=== PATIENT | female | born 1975 | race Caucasian/White ===

== ENCOUNTER 2018-07-26 01:08 | Inpatient (IN) | payer SELFPAY ==
[2018-07-26] VITALS (7 sets, daily range): BP systolic 109–131; BP diastolic 59–76
[~2018-07-26] VITALS: Ht 160 cm; Wt 70.9 kg
[2018-07-26] MEDS ORDERED: ENOXAPARIN SOD INJ 60 MG/0.6 ML SYR SC STA (01:09)
--- OUTSIDE RECORDS SUMMARY | 2018-07-26 01:11 | XMS REPORT ---
Author Author [facility] Address Unknown Phone Unavailable Care Team Providers Care Fur Sorter Name Role Phone Unavailable Unavailable Payers Payer Name Policy Type Policy Number Effective Date Expiration Date Problems This patient has no known problems. Allergies, Adverse Reactions, Alerts Allergy Name Allergy Type Status Severity Reaction(s) Onset Date Inactive Date Treating Clinician Comments No Known Allergies DA Active U 2016-10-09 00:00:00 Medications This patient has no known medications.
[2018-07-26] MEDS ORDERED: SODIUM CHLORIDE 0.9% 50ML 50 ML ONE (01:19)
[2018-07-26] MEDS ORDERED: IOPAMIDOL 370 MG/ML 200 ML INFUS..BTL INJ ONE (01:19)
[2018-07-26 01:34] LABS: BASOPHILS # (AUTO) 0.1 (0.0-0.1); BASOPHILS % 0.6 % (0.0-1.0); EOSINOPHILS # (AUTO) 0.2 (0.0-0.4); EOSINOPHILS % 1.6 % (0.0-6.0); HEMATOCRIT 38.3 % (34.2-44.1); HEMOGLOBIN 12.5 g/dL (12.0-16.0); LYMPHOCYTES # (AUTO) 2.4 (1.0-3.2); LYMPHOCYTES % 22.9 % (18.0-39.1); MEAN CORPUSCULAR HGB CONC 32.6 g/dL (31-35); MONOCYTES # (AUTO) 0.8 (0.2-0.8); MONOCYTES % 7.2 % (4.4-11.3); NEUTROPHILS % 67.3 % (38.7-80.0); PLATELET COUNT 304 x10e3/uL (140-360); RED BLOOD COUNT 4.03 x10e6/uL (3.6-5.1); RED CELL DISTRIBUTION WIDTH 13.9 % (11.7-14.4)
[2018-07-26 01:38] LABS: ABG HCO3 24 mmol/L (23-28); ABG PCO2 31 mmHg (41-51); ABG PH 7.38 (7.31-7.41); ABG PO2 76 mmHg (80-105)
[2018-07-26 01:50] LABS: ALANINE AMINOTRANSFERASE 17 IU/L (0-55); ALBUMIN 3.3 g/dL (3.5-5.0); ALKALINE PHOSPHATASE 104 IU/L (40-150); AMYLASE 61 U/L (25-125); ANION GAP 15.9 mmol/L (8-16); BLOOD UREA NITROGEN 7 mg/dL (7-26); BUN/CREATININE RATIO 9 (6-25); CARBON DIOXIDE 21 mmol/L (22-29); CHLORIDE 104 mmol/L (98-107); CREATININE, SERUM 0.74 mg/dL (0.57-1.11); EST GLOMERULAR FILTRATION RATE > 60 ML/MIN (60-); GLUCOSE 108 mg/dL (74-118); LIPASE 49 U/L (8-78); POTASSIUM 3.9 mmol/L (3.5-5.1); SODIUM 137 mmol/L (136-145)
--- NOTE | 2018-07-26 02:39 | Diagnostic Imaging Report ---
EXAM: CT Chest WITH contrast (PE Protocol) INDICATION: sob, r/o PE COMPARISON: None TECHNIQUE: Chest was scanned utilizing a multidetector helical scanner from the lung apex through the level of the adrenal glands without administration of IV contrast. Coronal and sagittal reformations were obtained. Pulmonary embolism protocol was performed. IV CONTRAST: 100 mL of Isovue-370 COMPLICATIONS: None RADIATION DOSE: Total DLP: 1215.7 mGy*cm Estimated effective dose: (DLP x 0.014 x size factor) mSv Dose modulation, iterative reconstruction, and/or weight based adjustment of the mA/kV was utilized to reduce the radiation dose to as low as reasonably achievable. FINDINGS: LINES/ TUBES: None. LUNGS AND AIRWAYS: No filling defect is identified within the pulmonary arteries to the segmental level. Mild centrilobular and paraseptal emphysematous changes. Few scattered groundglass opacities, more prominent in the right upper lobe. Mild bronchial wall thickening. Mild smooth interlobular septal thickening. Left lower lobe calcified granuloma. PLEURA: Small bilateral pleural effusions. HEART AND MEDIASTINUM: The thyroid gland is normal. Enlarged mediastinal nodes measuring up to 1.9 cm in the prevascular station. The heart is normal in size.. There is no pericardial effusion. Reflux of contrast into the intrahepatic IVC and hepatic veins. Main pulmonary artery enlarged measuring 3.6 cm in diameter. UPPER ABDOMEN: Please refer to same-day abdominal CT report. BONES: The visualized bony thorax is within normal limits. SOFT TISSUES: Unremarkable. IMPRESSION: 1. No pulmonary emboli. 2. Mild interstitial edema and small bilateral pleural effusions. 3. Bronchial wall thickening with groundglass opacities may a related to edema, bronchiolitis, or atypical infection. 4. Mild emphysema. 5. Enlarged pulmonary artery suggestive of pulmonary hypertension. Signed by: DR. Mulugeta Salcedo MD on 07/26/2018 2:36 AM
--- NOTE | 2018-07-26 02:47 | Diagnostic Imaging Report ---
EXAM: CT Abdomen and Pelvis WITH contrast INDICATION: SOB, R/O PE COMPARISON: None. TECHNIQUE: Abdomen and pelvis were scanned utilizing a multidetector helical scanner from the lung base to the pubic symphysis after administration of IV contrast. Coronal and sagittal reformations were obtained. Routine protocol was performed. Scan was performed when during portal venous phase. IV CONTRAST: 150 mL of Omnipaque 300 ORAL CONTRAST: Water COMPLICATIONS: None RADIATION DOSE: Total DLP: 1215.7 mGy*cm Estimated effective dose: (DLP x 0.015 x size factor) mSv Dose modulation, iterative reconstruction, and/or weight based adjustment of the mA/kV was utilized to reduce the radiation dose to as low as reasonably achievable. FINDINGS: LINES and TUBES: None. LOWER THORAX: Please refer to same-day chest CT report. HEPATOBILIARY: No focal hepatic lesions. No biliary ductal dilation. GALLBLADDER: No radio-opaque stones or sludge. No wall thickening. SPLEEN: No splenomegaly. PANCREAS: No focal masses or ductal dilatation. ADRENALS: No adrenal nodules KIDNEYS/URETERS: Kidneys enhance symmetrically. No hydronephrosis. No cystic or solid mass lesions. No stones. GI TRACT: No abnormal distention, wall thickening, or evidence of bowel obstruction. There are post surgical changes of appendectomy with small residual appendiceal stump. PELVIC ORGANS/BLADDER: Unremarkable. LYMPH NODES: No lymphadenopathy. VESSELS: There is mild atherosclerotic disease in the aorta and major arterial branches. PERITONEUM / RETROPERITONEUM: No free air or fluid. BONES: There are degenerative changes in the lumbar spine. SOFT TISSUES: Foci of air in the right anterior abdominal wall likely related to subcutaneous injections. Mild anasarca. IMPRESSION: No acute abnormalities in the abdomen or pelvis. Signed by: DR. Mulugeta Salcedo MD on 07/26/2018 2:43 AM
[2018-07-26] MEDS ORDERED: METHYLPREDNISOLONE SOD SUCC 125 MG/2ML VIAL IV ONE (05:00)
[2018-07-26 05:31] LABS: CLARITY,URINE CLEAR (CLEAR); COLOR,URINE YELLOW (YELLOW); KETONES,URINE NEGATIVE (NEGATIVE); LEUKOCYTE ESTERASE ,URINE TRACE (NEGATIVE); NITRITE,URINE NEGATIVE (NEGATIVE); PHENCYCLIDINE SCREEN,URINE NEGATIVE (NEGATIVE); PROTEIN,URINE DIPSTICK NEGATIVE (NEGATIVE)
[2018-07-26 05:32] LABS: AMPHETAMINES SCREEN,URINE NEGATIVE (NEGATIVE); BENZODIAZEPINES SCREEN,URINE POSITIVE (NEGATIVE); BILIRUBIN,URINE NEGATIVE (NEGATIVE); URINE UROBILINOGEN 0.2 mg/dL (0.2 - 1)
[2018-07-26 05:41] LABS: EPITHELIAL CELLS,URINE FEW /LPF; WBC,URINE (MAN) 0-5 /HPF (0-5)
[2018-07-26] MEDS ORDERED: CEFEPIME HCL 2 GM/SOD CHL 0.9% 100 ML BAG IV SCH (06:00)
--- NOTE | 2018-07-26 06:00 | NUR ---
PT PLACED ON TELEMETRY BOX #[id number] WITH CONT PULSE OX MONITOR.
[2018-07-26 06:03] LABS: CREATINE KINASE 48 IU/L (29-168)
[2018-07-26] MEDS ORDERED: SODIUM CHLORIDE 0.9% 250ML 250 ML ONE (06:25)
--- NOTE | 2018-07-26 06:29 | NUR ---
RT LOCATED BEDSIDE PULSE OX MONITOR. PT CHANGED TO BEDSIDE PULSE OX MONITOR. TELE BOX C PULSE OX RETURNED TO TELE ROOM.
--- NOTE | 2018-07-26 06:38 | NUR ---
ATTEMPTED TO CALL [facility] PER PT REQUEST TO NOTIFY THAT PT NOT RETURNING TO FACILITY DUE TO ADMISSION. NO ANSWER AT NUMBER PROVIDED.
[2018-07-26] MEDS: LEVOFLOXACIN 750MG/D5W 150ML IV SCH (06:39)
--- NOTE | 2018-07-26 06:39 | NUR ---
PT ARRIVED ON THE UNIT VIA STRETCHER AT 0610. PT IS ON 4L OF NC WITH CONTINUOUS PULSOX. BED IN THE LOWEST POSITION, LOCKED, AND CALL LIGHT WITHIN REACH. WILL CONTINUE TO MONITOR.
--- NOTE | 2018-07-26 08:30 | NUR ---
Pt received in bed this am. Pt came up from ER at 0610. Pt is tachypneic at this time, O2 sat is 84-87 at this time. Pt states she is having trouble breathing. Paged Dr. Kramer twice to get orders for breathing treatments and to report CT scan results. Received order from Dr. Kramer at this time for duonebs q4hrs and to palce pt on nonrebreather.
[2018-07-26] MEDS ORDERED: ALBUTEROL/IPRATROPIUM 3 ML NEB ONE (08:38)
[2018-07-26] MEDS: ALBUTEROL/IPRATROPIUM 3 ML NEB NEB SCH ×5 (08:40→23:22)
[2018-07-26 10:37] LABS: CREATINE KINASE 38 IU/L (29-168)
--- NOTE | 2018-07-26 12:00 | NUR ---
Pt is in bed. aox4 and able to verbalize needs. Pt o2 sat is 98-100. Pt is on o2 10L/min a this time.
[2018-07-26] MEDS: CEFEPIME 2 GM/NS 0.9% 100 ML 100 ML IV SCH ×2 (14:14→22:32)
[2018-07-26] MEDS: ACETAMINOPHEN 325 MG TAB PO PRN (17:18)
[2018-07-26 18:58] LABS: CREATINE KINASE 35 IU/L (29-168)
--- NOTE | 2018-07-26 19:15 | NUR ---
Completed BS rounds with morning nurse. Pt lying quietly in bed with eyes closed. Resp even and unlabored. Call reid within reach. Bed low and locked. Will continue to monitor.
--- NOTE | 2018-07-26 19:20 | NUR ---
Completed BS rounds with morning nurse. Pt resting quietly with eyes closed. Resp even and unlabored. Call reid within reach. Bed low and locked. Will continue to monitor.
[2018-07-27] VITALS (7 sets, daily range): BP systolic 105–130; BP diastolic 59–76
[2018-07-27] MEDS: ALBUTEROL/IPRATROPIUM 3 ML NEB NEB SCH ×6 (03:10→23:05)
[2018-07-27] MEDS: LEVOFLOXACIN 750MG/D5W 150ML IV SCH (05:15)
[2018-07-27] MEDS: CEFEPIME 2 GM/NS 0.9% 100 ML 100 ML IV SCH ×3 (06:32→21:15)
[2018-07-27] MEDS: ACETAMINOPHEN 325 MG TAB PO PRN ×2 (09:30→16:35)
[2018-07-27] MEDS ORDERED: ALBUTEROL/IPRATROPIUM 3 ML NEB NEB PRN (10:30)
[2018-07-27] MEDS: BENZONATATE 100 MG CAP PO SCH ×3 (10:54→21:15)
[2018-07-27] MEDS: METHYLPREDNISOLONE SOD SUCC 40 MG/ML VIAL 1ML IV SCH ×2 (10:54→22:39)
--- NOTE | 2018-07-27 11:00 | NUR ---
Pt complaining of SOB at this time. Pt heart rate is elevated in the 120 at this time, o2 sat is in the high 80s. on 6l/nc. Respiratory notified and breathing treatment was started. Stay with pt to calm her down take slow deep breaths. O2 was increased to 11L/NC. Dr. Kramer notified and received orders for solumedrol 40mg q12h and orders for tessalon perles 100mg TID. Pt sates she can breath better and O2 sat 93-94 on 10L/NC. Pt states that NC cannula is bothering her and she prefer to wear oxygen mask.
--- NOTE | 2018-07-27 19:20 | NUR ---
Completed BS rounds with morning nurse. Pt lying in bed HOB 45 receiving neb tx, Pt tolerating it well. Continuos pulse ox, to left hand, 2nd digit. Call reid within reach. Bed low and locked. Will continue to monitor.
[2018-07-28] VITALS (7 sets, daily range): BP systolic 102–135; BP diastolic 59–83
[2018-07-28] MEDS: ALBUTEROL/IPRATROPIUM 3 ML NEB NEB SCH ×6 (03:10→23:30)
[2018-07-28] MEDS: LEVOFLOXACIN 750MG/D5W 150ML IV SCH (04:49)
[2018-07-28] MEDS: CEFEPIME 2 GM/NS 0.9% 100 ML 100 ML IV SCH ×3 (06:31→22:36)
[2018-07-28] MEDS: BENZONATATE 100 MG CAP PO SCH ×3 (08:32→19:59)
[2018-07-28] MEDS: METHYLPREDNISOLONE SOD SUCC 40 MG/ML VIAL 1ML IV SCH ×2 (08:32→22:36)
--- NOTE | 2018-07-28 19:15 | NUR ---
Completed rounds with morning nurse. Pt lying in bed HOB 45 degrees. O2 @6L via NC, with continuous pulse oximetry. Pt tolerating it well. Call reid within reach. Bed low and locked. Will continue to monitor.
--- NOTE | 2018-07-28 19:30 | NUR ---
Pt with nosebleed. Instructed Pt to lower head and apply pressure to bridge of nose. Nose bled for 5 minutes. No further instructions. Call reid within reach.
[2018-07-28] MEDS: ACETAMINOPHEN 325 MG TAB PO PRN (20:00)
[2018-07-29] VITALS (8 sets, daily range): BP systolic 112–134; BP diastolic 61–94
--- NOTE | 2018-07-29 02:30 | NUR ---
Resting quietly with eyes closed. Lying right side HOB 30 degrees. Resp even and unlabored. No distress noted. Call reid within reach.
[2018-07-29] MEDS: ALBUTEROL/IPRATROPIUM 3 ML NEB NEB SCH ×6 (03:15→23:22)
[2018-07-29] MEDS: LEVOFLOXACIN 750MG/D5W 150ML IV SCH (05:45)
[2018-07-29] MEDS: CEFEPIME 2 GM/NS 0.9% 100 ML 100 ML IV SCH ×3 (06:00→20:19)
--- NOTE | 2018-07-29 07:06 | NUR ---
RECEIVED PATIENT RESTING IN BED. NO ACUTE DISTRESS NOTED. CALL LIGHT WITHIN REACH. BED IN THE LOWEST POSITION.
--- NOTE | 2018-07-29 07:31 | Diagnostic Imaging Report ---
EXAMINATION: PA and lateral views of the chest. COMPARISON: CT chest 07/26/2017 CLINICAL HISTORY: Pneumonia DISCUSSION: Lungs remain well-inflated. Coarse reticular interstitial opacities throughout the lungs. Small left pleural effusion and trace right pleural effusion. Heart size is at the upper limits of normal with prominence of the central pulmonary vasculature. No acute osseous abnormality. IMPRESSION: Stable mild enlargement of the cardiac silhouette with interstitial opacities and small left/trace right pleural effusions compatible with fluid overload. Signed by: Dr. Damián Nagy M.D. on 07/29/2018 7:27 AM
[2018-07-29] MEDS: BENZONATATE 100 MG CAP PO SCH ×3 (08:52→20:19)
[2018-07-29] MEDS: ACETAMINOPHEN 325 MG TAB PO PRN ×2 (08:53→19:26)
--- NOTE | 2018-07-29 11:00 | NUR ---
GAVE PACKET OF INFORMATION WITH [employer] [employer] FOR ASSISTANCE WITH LOW TO NO INCOME TO PATIENT. RESOURCES THAT PATIENT MAY BE ABLE TO FOLLOW UP UPON DISCHARGE. PT EDUCATED ON EACH RESOURCE AND UNDERSTANDING HOW TO FOLLOW UP TO SEE IF QUALIFIED FOR EACH RESOURCE.
[2018-07-29] MEDS: METHYLPREDNISOLONE SOD SUCC 40 MG/ML VIAL 1ML IV SCH ×2 (11:31→21:24)
[2018-07-29] MEDS ORDERED: INFLUENZA VIRUS VAC SPLIT INJ 0.5 ML SYR IM SCH (11:34)
--- NOTE | 2018-07-29 19:26 | NUR ---
REPORT GIVEN TO ONCOMING NURSE, WALKING ROUNDS DONE. PATIENT IS RESTING IN BED, NO ACUTE DISTRESS NOTED, NO SOB NOTED. CALL LIGHT WITHIN REACH. BED IN THE LOWEST POSITION.
--- NOTE | 2018-07-29 19:30 | NUR ---
RECEIVED PATIENT IN BED WATCHING TV. NO RESP DISTRESS. CALL LIGHT WITHIN REACH AND INSTRUCTED TO CALL FOR ASSISTANCE.
[2018-07-29] MEDS: FUROSEMIDE INJ 10 MG/ML 4 ML VIAL IV SCH (20:19)
[2018-07-30 00:05] VITALS: BP 138/83
[2018-07-30] MEDS: ALBUTEROL/IPRATROPIUM 3 ML NEB NEB SCH ×3 (03:10→11:32)
[2018-07-30] MEDS ORDERED: SODIUM CHLORIDE 0.9% 250ML 250 ML ONE (04:20)
[2018-07-30] MEDS: LEVOFLOXACIN 750MG/D5W 150ML IV SCH (04:22)
[2018-07-30 05:10] VITALS: BP 121/78
[2018-07-30] MEDS: CEFEPIME 2 GM/NS 0.9% 100 ML 100 ML IV SCH (05:50)
[2018-07-30 06:53] LABS: BASOPHILS % 0.2 % (0.0-1.0); EOSINOPHILS % 0.1 % (0.0-6.0); HEMATOCRIT 35.6 % (34.2-44.1); HEMOGLOBIN 11.7 g/dL (12.0-16.0); LYMPHOCYTES # (AUTO) 1.2 (1.0-3.2); MEAN CORPUSCULAR HEMOGLOBIN 31.2 pg (28-32); MEAN CORPUSCULAR HGB CONC 32.9 g/dL (31-35); MEAN CORPUSCULAR VOLUME 94.9 fL (81-99); NEUTROPHILS % 81.2 % (38.7-80.0); PLATELET COUNT 330 x10e3/uL (140-360); RED BLOOD COUNT 3.75 x10e6/uL (3.6-5.1); RED CELL DISTRIBUTION WIDTH 13.8 % (11.7-14.4)
--- NOTE | 2018-07-30 07:06 | NUR ---
RECEIVED PATIENT RESTING IN BED. NO ACUTE DISTRESS NOTED, NO SOB, RESPIRATIONS EVEN AND UNLABORED. CALL LIGHT WITHIN REACH. BED IN THE LOWEST POSITION.
[2018-07-30 07:25] VITALS: BP 138/74
[2018-07-30 07:39] LABS: ANION GAP 14.6 mmol/L (8-16); BLOOD UREA NITROGEN 11 mg/dL (7-26); BUN/CREATININE RATIO 19 (6-25); CALCIUM 9.5 mg/dL (8.4-10.2); CARBON DIOXIDE 25 mmol/L (22-29); CHLORIDE 99 mmol/L (98-107); CREATININE, SERUM 0.58 mg/dL (0.57-1.11); EST GLOMERULAR FILTRATION RATE > 60 ML/MIN (60-); GLUCOSE 112 mg/dL (74-118); POTASSIUM 3.6 mmol/L (3.5-5.1); SODIUM 135 mmol/L (136-145)
[2018-07-30 07:48] VITALS: BP 138/74
[2018-07-30] MEDS: FUROSEMIDE INJ 10 MG/ML 4 ML VIAL IV SCH (08:52)
[2018-07-30] MEDS: BENZONATATE 100 MG CAP PO SCH (08:52)
[2018-07-30] MEDS: METHYLPREDNISOLONE SOD SUCC 40 MG/ML VIAL 1ML IV SCH (10:48)
[2018-07-30 11:36] VITALS: BP 138/66
--- NOTE | 2018-07-30 12:24 | NUR ---
RECEIVED DC ORDER FROM MD. PATIENT IS IN STABLE CONDITION. IV LINE TO RIGHT FOREARM DC'D WITH TIP INTACT, PRESSURE APPLIED TO SITE, NO BLEEDING NOTED. DISCHARGE TEACHING PROVIDED TO PATIENT, SHE VERBALIZED UNDERSTANDING. PERSONAL ITEMS AND DISCHARGE FOLDER ON HAND. PATIENT ACCOMPANIED TO PRIVATE AUTO VIA WHEELCHAIR BY STAFF.
== END 2018-07-30 12:39 | disposition home or self-care (01) | DRG 193 ==
LOC: ER 01:08 → INTOOBSV 05:01 → ERHOLD 05:01 → MED/SURG3 06:20 → OBSVTOIN 07-28 12:10
DX: J18.9 Pneumonia, unspecified organism (principal); I50.23 Acute on chronic systolic (congestive) heart failure; N39.0 Urinary tract infection, site not specified; J44.0 Chronic obstructive pulmonary disease with (acute) lower respiratory infection; F17.210 Nicotine dependence, cigarettes, uncomplicated; F41.0 Panic disorder [episodic paroxysmal anxiety]; I11.0 Hypertensive heart disease with heart failure
CPT/HCPCS: 36415; 36600; 71046; 71260; 74177; 80048; 80053; 80307; 81001; 82150; 82550; 82553; 82805; 83690; 83880; 84484; 84702; 85025; 87040; 87070; 87205; 87400; 93306; 94640; 96372; 99284; G0378; J1650; J1940; J2920; J2930; J7050; Q9967

== ENCOUNTER 2020-10-26 09:32 | Emergency (ER) | payer SELFPAY ==
[~2020-10-26] VITALS: Ht 160 cm; Wt 70.8 kg
[2020-10-26] MEDS ORDERED: SODIUM CHLORIDE 0.9% 1000ML 1,000 ML IV STA (09:43)
[2020-10-26] MEDS ORDERED: ONDANSETRON HCL INJ 2MG/ML 2ML 2 MG/ML VIAL IV PRN (09:45)
[2020-10-26 10:08] LABS: BASOPHILS # (AUTO) 0.1 (0.0-0.1); BASOPHILS % 1.2 % (0.0-1.0); EOSINOPHILS # (AUTO) 0.2 (0.0-0.4); EOSINOPHILS % 2.3 % (0.0-6.0); HEMATOCRIT 33.8 % (34.2-44.1); HEMOGLOBIN 11.2 g/dL (12.0-16.0); LYMPHOCYTES # (AUTO) 1.6 (1.0-3.2); LYMPHOCYTES % 22.8 % (18.0-39.1); MEAN CORPUSCULAR HEMOGLOBIN 35.4 pg (28-32); MEAN CORPUSCULAR HGB CONC 33.1 g/dL (31-35); MONOCYTES # (AUTO) 0.6 (0.2-0.8); MONOCYTES % 8.3 % (4.4-11.3); NEUTROPHILS # (AUTO) 4.4 (2.1-6.9); NEUTROPHILS % 64.2 % (38.7-80.0); PLATELET COUNT 193 x10e3/uL (140-360); RED BLOOD COUNT 3.16 x10e6/uL (3.6-5.1); RED CELL DISTRIBUTION WIDTH 16.2 % (11.7-14.4)
[2020-10-26] MEDS ORDERED: SODIUM CHLORIDE 0.9% 50ML 50 ML ONE (10:13)
[2020-10-26] MEDS ORDERED: IOPAMIDOL 370 MG/ML 200 ML INFUS..BTL INJ ONE (10:14)
[2020-10-26 10:25] LABS: CLARITY,URINE CLEAR (CLEAR); COLOR,URINE YELLOW (YELLOW); LEUKOCYTE ESTERASE ,URINE NEGATIVE (NEGATIVE); NITRITE,URINE NEGATIVE (NEGATIVE); PROTEIN,URINE DIPSTICK NEGATIVE (NEGATIVE)
[2020-10-26 10:26] LABS: KETONES,URINE NEGATIVE (NEGATIVE); URINE UROBILINOGEN 0.2 mg/dL (0.2 - 1)
[2020-10-26 10:27] LABS: AMPHETAMINES SCREEN,URINE NEGATIVE (NEGATIVE); BENZODIAZEPINES SCREEN,URINE NEGATIVE (NEGATIVE); PHENCYCLIDINE SCREEN,URINE NEGATIVE (NEGATIVE)
[2020-10-26 10:30] LABS: MUCUS,URINE FEW (RARE); RBC,URINE 0-5 /HPF (0-5); WBC,URINE (MAN) 0-5 /HPF (0-5)
[2020-10-26 10:43] LABS: ALANINE AMINOTRANSFERASE 43 IU/L (0-55); ALBUMIN 2.8 g/dL (3.5-5.0); ALBUMIN/GLOBULIN RATIO 0.8 (0.8-2.0); ALKALINE PHOSPHATASE 142 IU/L (40-150); ANION GAP 16.6 mmol/L (8-16); BLOOD UREA NITROGEN < 5 mg/dL (7-26); BUN/CREATININE RATIO 10 (6-25); CALCIUM 8.3 mg/dL (8.4-10.2); CARBON DIOXIDE 25 mmol/L (22-29); CHLORIDE 100 mmol/L (98-107); CREATININE, SERUM 0.49 mg/dL (0.57-1.11); EST GLOMERULAR FILTRATION RATE > 60 ML/MIN (60-); GLUCOSE 86 mg/dL (74-118); LIPASE 6 U/L (8-78); POTASSIUM 3.6 mmol/L (3.5-5.1); SODIUM 138 mmol/L (136-145)
[2020-10-26] MEDS ORDERED: KETOROLAC TROMETHAMINE 30 MG/ML VIAL IV STA (10:52)
[2020-10-26] MEDS ORDERED: DOXYCYCLINE HY100 MG PO (11:09)
[2020-10-26] MEDS ORDERED: ULTRAM50 MG PO (11:10)
== END 2020-10-26 11:53 | disposition home or self-care (01) ==
LOC: ER 10:05
DX: R05 Cough (principal); J18.9 Pneumonia, unspecified organism; R10.32 Left lower quadrant pain; F17.210 Nicotine dependence, cigarettes, uncomplicated
CPT/HCPCS: 36415; 71045; 74177; 80053; 80307; 81001; 83690; 84484; 84702; 85025; 93005; 99284; J1885; J2405; J7030; Q9967